=== PATIENT | female | born 1985 | race Caucasian/White ===

== ENCOUNTER 2019-06-03 16:36 | Emergency (ER) | payer BC, OTHER ==
[~2019-06-03] VITALS: Ht 165 cm; Wt 68.0 kg
[~2019-06-03 16:36] MED LIST: ESTR0.5T PO; IRON; LRT10T PO; MAGNESIUM; POTASSIUM; SMTR6KT.5 SQ; SRTR100T PO; VITAMIN D
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
[2019-06-03] MEDS ORDERED: CYCL10TA9 PO (19:31)
[2019-06-03] MEDS ORDERED: NAPR-1071 PO (19:31)
[2019-06-03 19:43] VITALS: BP 114/78
--- OUTSIDE RECORDS SUMMARY | 2019-06-27 09:18 | XMS REPORT ---
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 Name Role Phone POS Migration, Doctor Unavailable Unavailable SP PROBLEMS Type Condition ICD9-CM Code ROI58-GC Code Onset Dates Condition S tatus SNOMED POS Problem Unspecified nontoxic nodular goiter 241.9 Active [id number] POS Problem Nontoxic uninodular goiter 241.0 Act elenita [id number] SP Problem Unspecified vitamin D deficiency 268.9 Active [id number] SP Problem Loss of weight 783.21 Active 16798 5001 SP Problem Other malaise and fatigue 780.79 Acti ve [id number] SP Problem Symptomatic states associated with artificial menopause 62 7.4 Active SP [id number] SP ALLERGIES No Information ENCOUNTERS Encounter Location Date Diagnosis POS [facility] [address] [facility] [id number] [address] [place] [id number] SP Nov, SP [facility] [address] [facility] [id number] [place] [id number] SP Nov, SP [facility] [address] [place] [id number] [address] [place] [id number] SP Sep, SP [facility] [address] [facility] [id number] [address] [place] [id number] SP Mar, SP [facility] [address] [facility] [id number] [address] [place] [phone] SP Feb, SP [facility] [address] [facility] [id number] [address] [place] [phone] SP December, SP [facility] [address] [facility] [id number] [address] [place] [phone] SP December, SP [facility] [address] [place] [id number] [address] [place] [phone] SP Nov, SP [facility] [address] [id number] [address] [place] [address], [place] [address] SP Oct, SP [facility] [address] [id number] [address] [place] [address], [place] [address] SP Oct, SP [facility] [address] [id number] [address] [place] [address], [place] [address] SP Oct, SP [facility] [address] [id number] [address] [address], [place] [address] SP Oct, SP [facility] [address] [id number] [address] [place] [address], [place] [address] SP Oct, SP [facility] [address] [id number] [address] [place] [address], [place] [address] SP 14 Sep, 2012 SP [facility] [address] [id number] [address] [place] [address], [place] [address] SP 15 Jun, 2012 SP [facility] [address] [id number] [address] [place] [address], [place] [address] SP 15 Jun, 2012 SP [facility] [address] [id number] [address] [place] [address], [place] [id number] SP 17 May, 2012 SP [facility] [address] [id number] [address] [place] [id number] SP 17 May, 2012 SP [facility] [address] [id number] [address] [place] [id number] SP 16 May, 2012 SP [facility] [address] [id number] [address] [place] [address], [place] [address] SP 16 May, 2012 SP [facility] [address] [id number] [address] [place] [id number] SP May, SP [facility] [address] [id number] [address] [place] [address], [place] [address] SP May, SP [facility] [address] [id number] [address] [place] [phone] SP May, SP [facility] [address] [facility] [id number] [address] [place] [phone] SP May, SP [facility] [address] [id number] [address] [place] [phone] SP May, SP [facility] [address] [id number] [address] [place] [id number] SP May, SP [facility] [address] [id number] [place] [id number] Mar, SP SP [facility] [place] [address] [id number] [place] [id number] Mar, SP SP [facility] [place] [address] [id number] [place] [id number] Jan, SP SP [facility] [address] [id number] [address] [place] [id number] SP Jan, SP [facility] [place] [address] [id number] [place] [id number] Sep, SP SP [facility] [address] [facility] [id number] [address] [place] [phone] SP Aug, SP [facility] [address] [facility] [id number] [address] [place] [id number] SP Aug, SP [facility] [address] [facility] [id number] [address] [place] [id number] SP May, SP [facility] [address] [facility] [id number] [address] [place] [phone] SP May, SP [facility] [address] [facility] [id number] [address] [place] [id number] SP Mar, SP [facility] [address] [facility] [id number] [address] [place] [id number] SP May, SP [facility] [address] [facility] [id number] [address] [place] [id number] SP May, SP [facility] [address] [facility] [id number] [address] [address] SP May, SP IMMUNIZATIONS No Known Immunizations SOCIAL HISTORY Never Assessed REASON FOR VISIT EMR-[facility] PLAN OF CARE VITAL SIGNS MEDICATIONS Unknown Medications RESULTS No Results PROCEDURES No Known procedures INSTRUCTIONS MEDICATIONS ADMINISTERED No Known Medications
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
--- OUTSIDE RECORDS SUMMARY | 2019-06-27 09:18 | XMS REPORT ---
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 [id number] POS Problem Nontoxic uninodular goiter 241.0 Act elenita 957226088 SP Problem Loss of weight 783.21 Active 15435 5001 SP Problem Other malaise and fatigue 780.79 Acti ve 619510739 SP Problem Symptomatic states associated with artificial menopause 62 7.4 Active SP 54703635 SP Problem Unspecified vitamin D deficiency 268.9 Active 80540256 SP ALLERGIES No Information ENCOUNTERS Encounter Location Date Diagnosis POS [facility] [address] [facility] [id number] [address] [place] [phone] SP Nov, SP [facility] [address] [facility] [id number] [address] [place] [phone] SP Nov, SP [facility] [address] [place] [id number] [address] [place] [address] SP Sep, SP [facility] [address] [facility] [id number] [address] [place] [phone] SP Mar, SP [facility] [address] [facility] [id number] [address] [place] [address] SP Feb, SP [facility] [address] [facility] [id number] [address] [place] [address] SP December, SP [facility] [address] [facility] [id number] [address] [place] [phone] SP December, SP [facility] [address] [place] [id number] [address] [place] [address] SP Nov, SP [facility] [address] [id number] [address] [place] [address], [place] [address] SP Oct, SP [facility] [address] [id number] [address] [place] [address], [place] [address] SP Oct, SP [facility] [address] [id number] [address] [place] [address], [place] [address] SP Oct, SP [facility] [address] [id number] [address] [place] [address], [place] [address] SP Oct, SP [facility] [address] [id number] [address] [place] [address], [place] [address] SP Oct, SP [facility] [address] [id number] [address] [place] [address], [place] [address] SP 14 Sep, 2012 SP [facility] [address] [id number] [address] [place] [address], [place] [address] SP 15 Jun, 2012 SP [facility] [address] [id number] [address] [place] [address], [place] [address] SP 15 Jun, 2012 SP [facility] [address] [id number] [address] [place] [address], [place] [address] SP 17 May, 2012 SP [facility] [address] [id number] [address] [place] [phone] SP 17 May, 2012 SP [facility] [address] [id number] [address] [place] [phone] SP 16 May, 2012 SP [facility] [address] [id number] [address] [place] [address], [place] [address] SP 16 May, 2012 SP [facility] [address] [id number] [address] [place] [phone] SP May, SP [facility] [address] [id number] [address] [place] [address], [place] [address] SP May, SP [facility] [address] [id number] [address] [place] [phone] SP May, SP [facility] [address] [facility] [id number] [address] [place] [phone] SP May, SP [facility] [address] [id number] [address] [place] [phone] SP May, SP [facility] [address] [id number] [address] [place] [phone] SP May, SP [facility] [place] [address] [id number] [place] [id number] Mar, SP SP [facility] [place] [address] [id number] [place] [id number] Mar, SP SP [facility] [place] [address] [id number] [place] [id number] Jan, SP SP [facility] [address] [id number] [address] [place] [phone] SP Jan, SP [facility] [place] [address] [id number] [place] [id number] Sep, SP SP [facility] [address] [facility] [id number] [address] [place] [address] SP Aug, SP [facility] [address] [facility] [id number] [address] [place] [phone] SP Aug, SP [facility] [address] [facility] [id number] [address] [place] [address] SP May, SP [facility] [address] [facility] [id number] [address] [place] [address] SP May, SP [facility] [address] [facility] [id number] [address] [place] [address] SP Mar, SP [facility] [address] [facility] [id number] [address] [place] [address] SP May, SP [facility] [address] [facility] [id number] [address] [place] [address] SP May, SP [facility] [address] [facility] [id number] [address] [place] [address] SP May, SP IMMUNIZATIONS No Known Immunizations SOCIAL HISTORY Never Assessed REASON FOR VISIT [facility] [place] CARE VITAL SIGNS MEDICATIONS Medication Instructions Dosage Frequency Start Date End Date Duration S tatus POS PredniSONE 20 mg 2 tablet by Oral rou te 1 time per day for 5 days PT NEEDS TO SP ALL OTHER PAIN MEDS Oct, Activ e SP Imitrex 100 mg 1 tablet by Oral rou te 1 time per day and repeat once more SP 2 hours if headache recurs PRN Nov, Active SP Zoloft 100 mg 1 tablet by Oral route 1 time per day 2012 Active SP Loratadine 10 mg take 1 tablet by Oral route 1 time pe r daytake at hs 13 SP 2011 Active SP Estradiol 0.5 mg 1 tablet by Oral route 1 time per day 1 4 Sep, 2012 SP Wellbutrin SR 150 mg 1 Tablet by Oral route 2 times per day Mar, SP Active SP RESULTS No Results PROCEDURES No Known procedures INSTRUCTIONS MEDICATIONS ADMINISTERED No Known Medications
--- OUTSIDE RECORDS SUMMARY | 2019-06-27 09:18 | XMS REPORT ---
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 Active [id number] POS Problem Nontoxic uninodular goiter 241.0 Act elenita 311465523 SP Problem Loss of weight 783.21 Active 07782 5001 SP Problem Other malaise and fatigue 780.79 Acti ve 941513361 SP Problem Symptomatic states associated with artificial menopause 62 7.4 Active SP 65098136 SP Problem Unspecified vitamin D deficiency 268.9 Active 54562776 SP ALLERGIES No Information ENCOUNTERS Encounter Location Date Diagnosis POS [facility] [address] [facility] [id number] [address] [place] [address] SP Nov, SP [facility] [address] [facility] [id number] [address] [place] [phone] SP Nov, SP [facility] [address] [place] [id number] [address] [place] [address] SP Sep, SP [facility] [address] [facility] [id number] [address] [place] [phone] SP Mar, SP [facility] [address] [facility] [id number] [address] [place] [phone] SP Feb, SP [facility] [address] [facility] [id number] [address] [place] [address] SP December, SP [facility] [address] [facility] [id number] [address] [place] [phone] SP December, SP [facility] [address] [place] [id number] [address] [place] [phone] SP Nov, SP [facility] [address] [id number] [address] [place] [address], [place] [address] SP Oct, SP [facility] [address] [id number] [address] [place] [address], [place] [address] SP Oct, SP [facility] [address] [id number] [address] [place] [address], [place] [address] SP Oct, SP [facility] [address] [id number] [address] [place] [address], [place] [address] SP Oct, SP [facility] [address] [id number] [address] [place] [address], [place] [address] SP Oct, SP [facility] [address] [id number] [address] [place] [address], [place] [address] SP 14 Sep, 2012 SP [facility] [address] [id number] [address] [place] [address], [place] [address] SP 15 Jun, 2012 SP [facility] [address] [id number] [address] [place] [address], [place] [phone] SP 15 Jun, 2012 SP [facility] [address] [id number] [address] [place] [address], [place] [address] SP 17 May, 2012 SP [facility] [address] [id number] [address] [place] [phone] SP 17 May, 2012 SP [facility] [address] [id number] [address] [place] [phone] SP 16 May, 2012 SP [facility] [address] [id number] [address] [place] [address], [place] [address] SP 16 May, 2012 SP [facility] [address] [id number] [address] [place] [address] SP May, SP [facility] [address] [id number] [address] [place] [address], [place] [address] SP May, SP [facility] [address] [id number] [address] [place] [phone] SP May, SP [facility] [address] [facility] [id number] [address] [place] [address] SP May, SP [facility] [address] [id number] [address] [place] [phone] SP May, SP [facility] [address] [id number] [address] [place] [phone] SP May, SP [facility] [place] [address] [id number] [place] [id number] Mar, SP SP [facility] [place] [address] [id number] [place] [id number] Mar, SP SP [facility] [place] [address] [id number] [place] [id number] Jan, SP SP [facility] [address] [id number] [address] [place] [phone] SP Jan, SP [facility] [place] [address] [id number] [place] [id number] Sep, SP SP [facility] [address] [facility] [id number] [address] [place] [address] SP Aug, SP [facility] [address] [facility] [id number] [address] [place] [phone] SP Aug, SP [facility] [address] [facility] [id number] [address] [place] [address] SP May, SP [facility] [address] [facility] [id number] [address] [place] [phone] SP May, SP [facility] [address] [facility] [id number] [address] [place] [address] SP Mar, SP [facility] [address] [facility] [id number] [address] [place] [id number] SP May, SP [facility] [address] [facility] [id number] [address] [place] [phone] SP May, SP [facility] [address] [facility] [id number] [place] [address] SP May, SP IMMUNIZATIONS No Known Immunizations SOCIAL HISTORY Never Assessed REASON FOR VISIT [facility] [place] PLAN OF CARE VITAL SIGNS MEDICATIONS Unknown Medications RESULTS No Results PROCEDURES No Known procedures INSTRUCTIONS MEDICATIONS ADMINISTERED No Known Medications
--- OUTSIDE RECORDS SUMMARY | 2019-06-27 09:18 | XMS REPORT ---
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 Active [id number] POS Problem Nontoxic uninodular goiter 241.0 Act elenita 908608156 SP Problem Loss of weight 783.21 Active 55722 5001 SP Problem Other malaise and fatigue 780.79 Acti ve [id number] SP Problem Symptomatic states associated with artificial menopause 62 7.4 Active SP [id number] SP Problem Unspecified vitamin D deficiency 268.9 Active 45378023 SP ALLERGIES No Information ENCOUNTERS Encounter Location Date Diagnosis POS [facility] [address] [facility] [id number] [address] [place] [phone] SP Nov, SP [facility] [address] [facility] [id number] [address] [place] [phone] SP Nov, SP [facility] [address] [place] [id number] [address] [place] [phone] SP Sep, SP [facility] [address] [facility] [id number] [address] [place] [phone] SP Mar, SP [facility] [address] [facility] [id number] [address] [place] [phone] SP Feb, SP [facility] [address] [facility] [id number] [address] [place] [phone] SP December, SP [facility] [address] [facility] [id number] [address] [place] [phone] SP December, SP [facility] [address] [place] [place] [id number] [address] [place] [phone] SP Nov, SP [facility] [address] [id number] [address] [place] [address], [place] [phone] SP Oct, SP [facility] [address] [id number] [address] [place] [address], [place] [phone] SP Oct, SP [facility] [address] [id number] [address] [place] [address], [place] [address] SP Oct, SP [facility] [address] [id number] [address] [place] [address], [place] [phone] SP Oct, SP [facility] [address] [id number] [address] [place] [address], [place] [phone] SP Oct, SP [facility] [address] [id number] [address] [place] [address], [place] [phone] SP 14 Sep, 2012 SP [facility] [address] [id number] [address] [place] [address], [place] [phone] SP 15 Jun, 2012 SP [facility] [address] [id number] [address] [place] [address], [place] [phone] SP 15 Jun, 2012 SP [facility] [address] [id number] [address] [place] [address], [place] [address] SP 17 May, 2012 SP [facility] [address] [id number] [address] [place] [phone] SP 17 May, 2012 SP [facility] [address] [id number] [address] [place] [phone] SP 16 May, 2012 SP [facility] [address] [id number] [address] [place] [address], [place] [address] SP 16 May, 2012 SP [facility] [address] [id number] [address] [place] [phone] SP May, SP [facility] [address] [id number] [address] [place] [address], [place] [address] SP May, SP [facility] [address] [id number] [address] [place] [phone] SP May, SP [facility] [address] [facility] [id number] [address] [place] [phone] SP May, SP [facility] [address] [id number] [address] [place] [phone] SP May, SP [facility] [address] [id number] [address] [place] [phone] SP May, SP [facility] [place] [address] [id number] [place] [id number] Mar, SP SP [facility] [address] [id number] [place] [id number] Mar, SP SP [facility] [address] [id number] [place] [id number] Jan, SP SP [facility] [address] [id number] [address] [place] [phone] SP Jan, SP [facility] [address] [id number] [place] [id number] Sep, SP SP [facility] [address] [facility] [id number] [address] [place] [phone] SP Aug, SP [facility] [address] [facility] [id number] [address] [place] [phone] SP Aug, SP [facility] [address] [facility] [id number] [address] [place] [phone] SP May, SP [facility] [address] [facility] [id number] [address] [place] [phone] SP May, SP [facility] [address] [facility] [id number] [address] [place] [phone] SP Mar, SP [facility] [address] [facility] [id number] [address] [place] [phone] SP May, SP [facility] [address] [facility] [id number] [address] [place] [phone] SP May, SP [facility] [address] [facility] [id number] [address] [address] SP May, SP IMMUNIZATIONS No Known Immunizations SOCIAL HISTORY Never Assessed REASON FOR VISIT EMR-[facility] PLAN OF CARE VITAL SIGNS MEDICATIONS Unknown Medications RESULTS No Results PROCEDURES No Known procedures INSTRUCTIONS MEDICATIONS ADMINISTERED No Known Medications
--- OUTSIDE RECORDS SUMMARY | 2019-06-27 09:18 | XMS REPORT ---
Author Author Migration, Doctor POS Organization [facility] SP Address Unknown SP Phone Unavailable SP Care Team Providers Care Palliative Care Nurse Name Role Phone POS Migration, Doctor Unavailable Unavailable SP PROBLEMS Type Condition ICD9-CM Code [id number]-KZ Code Onset Dates Condition S tatus SNOMED POS Problem Unspecified nontoxic nodular goiter 241.9 Active [id number] POS Problem Nontoxic uninodular goiter 241.0 Act elenita [id number] SP Problem Loss of weight 783.21 Active 64440 5001 SP Problem Other malaise and fatigue 780.79 Acti ve 697527919 SP Problem Symptomatic states associated with artificial menopause 62 7.4 Active SP [id number] SP Problem Unspecified vitamin D deficiency 268.9 Active 47605648 SP ALLERGIES No Information ENCOUNTERS Encounter Location Date Diagnosis POS [facility] [address] [facility] [id number] [address] [place] [phone] SP Nov, SP [facility] [address] [facility] [id number] [address] [place] [phone] SP Nov, SP [facility] [address] [place] [id number] [address] [place] [phone] SP Sep, SP [facility] [address] [facility] [id number] [address] [place] [phone] SP Mar, SP [facility] [address] [facility] [id number] [address] [place] [phone] SP Feb, SP [facility] [address] [facility] [id number] [address] [place] [phone] SP December, SP [facility] [address] [facility] [id number] [address] [place] [phone] SP December, SP [facility] [address] [place] [id number] [address] [place] [phone] SP Nov, SP [facility] [address] [id number] [address] [place] [address], [place] [phone] SP Oct, SP [facility] [address] [id number] [address] [place] [address], [place] [phone] SP Oct, SP [facility] [address] [id number] [address] [place] [address], [place] [phone] SP Oct, SP [facility] [address] [id number] [address] [place] [address], [place] [phone] SP Oct, SP [facility] [address] [id number] [address] [place] [address], [place] [phone] SP Oct, SP [facility] [address] [id number] [address] [place] [address], [place] [address] SP 14 Sep, 2012 SP [facility] [address] [id number] [address] [place] [address], [place] [phone] SP 15 Jun, 2012 SP [facility] [address] [id number] [address] [place] [address], [place] [address] SP 15 Jun, 2012 SP [facility] [address] [id number] [address] [place] [address], [place] [address] SP 17 May, 2012 SP [facility] [address] [id number] [address] [place] [phone] SP 17 May, 2012 SP [facility] [address] [id number] [address] [place] [phone] SP 16 May, 2012 SP [facility] [address] [id number] [address] [place] [address], [place] [address] SP 16 May, 2012 SP [facility] [address] [id number] [address] [place] [phone] SP May, SP [facility] [address] [id number] [address] [place] [address], [place] [id number] SP May, SP [facility] [address] [id number] [address] [place] [phone] SP May, SP [facility] [address] [facility] [id number] [address] [place] [phone] SP May, SP [facility] [address] [id number] [address] [place] [phone] SP May, SP [facility] [address] [id number] [address] [place] [phone] SP May, SP [facility] [address] [id number] [place] [id number] Mar, SP SP [facility] [address] [id number] [place] [id number] Mar, SP SP [facility] [address] [id number] [place] [id number] Jan, SP SP [facility] [address] [id number] [address] [place] [phone] SP Jan, SP [facility] [address] [id number] [place] [id number] Sep, SP SP [facility] [address] [facility] [id number] [address] [place] [phone] SP Aug, SP [facility] [address] [facility] [id number] [address] [place] [phone] SP Aug, SP [facility] [address] [facility] [id number] [address] [place] [phone] SP May, SP [facility] [address] [facility] [id number] [address] [place] [phone] SP May, SP [facility] [address] [facility] [id number] [address] [place] [phone] SP Mar, SP [facility] [address] [facility] [id number] [address] [place] [phone] SP May, SP [facility] [address] [facility] [id number] [address] [place] [phone] SP May, SP [facility] [address] [facility] [id number] [address] [address] SP May, SP IMMUNIZATIONS No Known Immunizations SOCIAL HISTORY Never Assessed REASON FOR VISIT EMR-[facility] PLAN OF CARE VITAL SIGNS MEDICATIONS Unknown Medications RESULTS No Results PROCEDURES No Known procedures INSTRUCTIONS MEDICATIONS ADMINISTERED No Known Medications
== END 2019-06-03 19:44 | disposition home or self-care (01) ==
LOC: EDUNIT# 16:36 → ER 16:37
DX: S39.012A Strain of muscle, fascia and tendon of lower back, initial encounter (principal); S16.1XXA Strain of muscle, fascia and tendon at neck level, initial encounter; M51.9 Unspecified thoracic, thoracolumbar and lumbosacral intervertebral disc disorder; R40.2142 Coma scale, eyes open, spontaneous, at arrival to emergency department; R40.2252 Coma scale, best verbal response, oriented, at arrival to emergency department; R40.2362 Coma scale, best motor response, obeys commands, at arrival to emergency department; Z90.710 Acquired absence of both cervix and uterus; V43.52XA Car driver injured in collision with other type car in traffic accident, initial encounter
CPT/HCPCS: 72125; 72131; 99282